=== PATIENT | female | born 1965 | race Caucasian/White ===

== ENCOUNTER 2019-04-03 09:55 | Outpatient (CLI) | payer OTHER ==
--- NOTE | 2019-04-03 11:00 | ULT ---
US Thyroid STANDARD History: [Multinodular goiter] Comparison: None Findings: Real-time grayscale and color evaluation of the thyroid was performed. Is this measures 3 m m in AP dimension. Right lobe measures 5.2 x 1.6 x 1.7 cm left lobe measures 4.5 x 1.5 x 1.4 cm. There are multiple cysts of the right lobe of the thyroid. Multiple colloid nodules. In the left lobe is a single 0.7 x 0.4 x 0.4 cm isoechoic widened tall nodule with sharply defined margins without echogenic foci. This is TIRADS 3: Mildly suspicious. Given its small size, no follow-up or aspiration is recommended. Impression: Numerous cysts and colloid nodules throughout the thyroid.
== END 2019-04-03 09:56 | disposition home or self-care (01) ==
LOC: SCSULT 09:55
PROVIDERS: ATTEND Internal Medicine Endocrinology, Diabetes & Metabolism
DX: E04.2 Nontoxic multinodular goiter (principal); Z80.8 Family history of malignant neoplasm of other organs or systems
CPT/HCPCS: 76536

== ENCOUNTER 2023-07-09 10:45 | Outpatient (CLI) | payer OTHER | END 2023-07-09 10:46 | disposition home or self-care (01) | LOC: RAD 10:45 | PROVIDERS: ATTEND Anesthesiology Pain Medicine | DX: M47.816 Spondylosis without myelopathy or radiculopathy, lumbar region (principal) | CPT/HCPCS: 72100 ==